=== PATIENT | female | born 1940 | race Caucasian/White ===

== ENCOUNTER 2018-06-08 10:08 | Emergency (ER) | payer OTHER ==
[~2018-06-08 10:08] MED LIST: ATEN25TA PO; BUPR150T8 PO; DICY10CA13 PO; ESCI10TA54 PO; FLUT16H NS; PANT40TA25 PO; PRAV10TA39 PO
[2018-06-08 10:40] LABS: BASOPHILS % (AUTO) 0.8 % (0.0-5.0); EOSINOPHILS % (AUTO) 2.8 % (0.0-8.0); HEMATOCRIT 39.3 % (36-48); LYMPHOCYTES % (AUTO) 23.2 % (21.0-51.0); MEAN CORPUSCULAR HEMOGLOBIN 31.2 pg (27.0-33.0); MEAN CORPUSCULAR HGB CONC 33.1 g/dL (32.0-36.0); MEAN CORPUSCULAR VOLUME 94.1 fL (79-99); MONOCYTES % (AUTO) 9.3 % (3.0-13.0); NEUTROPHILS % (AUTO) 63.9 % (40.0-77.0); NUCLEATED RED BLOOD CELLS 0.2 % (0.0-0.19); PLATELET COUNT (AUTO) 176 K/uL (130-400); RED BLOOD CELL COUNT(AUTO) 4.17 MIL/uL (4.00-5.50); RED CELL DISTRIBUTION WIDTH 14.8 % (11.0-15.5); WHITE BLOOD COUNT (AUTO) 5.4 K/uL (4.8-10.8)
[2018-06-08 11:03] LABS: CREATININE 0.9 mg/dL (0.5-1.5); POTASSIUM 4.2 mmol/L (3.5-5.1)
[2018-06-08 11:11] LABS: ALBUMIN 3.1 g/dL (3.5-5.0); BILIRUBIN,TOTAL 0.8 mg/dL (0.2-1.0); TOTAL PROTEIN, SERUM 7.1 g/dL (6.0-8.3)
== END 2018-06-08 13:23 | disposition home or self-care (01) ==
LOC: EDH 10:08
DX: S09.90XA Unspecified injury of head, initial encounter (principal); I10 Essential (primary) hypertension; E78.5 Hyperlipidemia, unspecified; E11.9 Type 2 diabetes mellitus without complications; K21.9 Gastro-esophageal reflux disease without esophagitis; I48.91 Unspecified atrial fibrillation; Z90.49 Acquired absence of other specified parts of digestive tract; Z90.710 Acquired absence of both cervix and uterus; Z98.890 Other specified postprocedural states; Z87.891 Personal history of nicotine dependence; Z88.2 Allergy status to sulfonamides; Z91.048 Other nonmedicinal substance allergy status; W01.198A Fall on same level from slipping, tripping and stumbling with subsequent striking against other object, initial encounter; Y93.89 Activity, other specified; Y92.89 Other specified places as the place of occurrence of the external cause; Y99.8 Other external cause status
CPT/HCPCS: 36415; 70450; 72125; 80053; 84484; 85025; 93005

== ENCOUNTER → 2018-09-16 | Outpatient (CLI) | payer OTHER | END | disposition home or self-care (01) | LOC: SHCH 13:31 | PROVIDERS: ATTEND Internal Medicine Cardiovascular Disease | DX: I65.23 Occlusion and stenosis of bilateral carotid arteries (principal); I51.7 Cardiomegaly | CPT/HCPCS: 93306; 93880 ==

== ENCOUNTER 2018-10-10 06:15 | Emergency (ER) | payer OTHER ==
[2018-10-10 06:55] LABS: BASOPHILS % (AUTO) 1.3 % (0.0-5.0); EOSINOPHILS % (AUTO) 2.2 % (0.0-8.0); LYMPHOCYTES % (AUTO) 22.1 % (21.0-51.0); MEAN CORPUSCULAR HEMOGLOBIN 31.4 pg (27.0-33.0); MEAN CORPUSCULAR HGB CONC 33.4 g/dL (32.0-36.0); MONOCYTES % (AUTO) 8.6 % (3.0-13.0); NEUTROPHILS % (AUTO) 65.8 % (40.0-77.0); PLATELET COUNT (AUTO) 203 K/uL (130-400); RED BLOOD CELL COUNT(AUTO) 4.36 MIL/uL (4.00-5.50); RED CELL DISTRIBUTION WIDTH 15.2 % (11.0-15.5); WHITE BLOOD COUNT (AUTO) 9.6 K/uL (4.8-10.8)
[2018-10-10 07:04] LABS: CREATININE 0.8 mg/dL (0.5-1.5); POTASSIUM 3.5 mmol/L (3.5-5.1)
[2018-10-10 07:06] LABS: PARTIAL THROMBOPLASTIN TIME 26.9 SEC (26.3-35.5); PROTHROMBIN TIME 10.5 SEC (9.6-11.6)
[2018-10-10 07:10] LABS: ALBUMIN 3.2 g/dL (3.5-5.0); BILIRUBIN,TOTAL 1.2 mg/dL (0.2-1.0); TOTAL PROTEIN, SERUM 6.9 g/dL (6.0-8.3)
[2018-10-10] MEDS ORDERED: ACETAMINOPHEN 325 MG TAB ONE (08:21)
== END 2018-10-10 09:50 | disposition home or self-care (01) ==
LOC: EDH 06:15
DX: S20.212A Contusion of left front wall of thorax, initial encounter (principal); S20.211A Contusion of right front wall of thorax, initial encounter; E11.9 Type 2 diabetes mellitus without complications; F03.90 Unspecified dementia, unspecified severity, without behavioral disturbance, psychotic disturbance, mood disturbance, and anxiety; E78.5 Hyperlipidemia, unspecified; I10 Essential (primary) hypertension; K21.9 Gastro-esophageal reflux disease without esophagitis; I48.91 Unspecified atrial fibrillation; Z91.041 Radiographic dye allergy status; Z88.2 Allergy status to sulfonamides; Z90.49 Acquired absence of other specified parts of digestive tract; W18.39XA Other fall on same level, initial encounter; Y93.01 Activity, walking, marching and hiking; Y92.89 Other specified places as the place of occurrence of the external cause; Y99.8 Other external cause status
CPT/HCPCS: 36415; 71045; 71100; 71250; 80053; 82550; 84484; 85025; 85610; 85730; 93005

== ENCOUNTER 2019-06-02 13:16 | Emergency (ER) | payer OTHER ==
[2019-06-02] MEDS ORDERED: TETRACAINE HCL 0.5% 4 ML OPHTH SOLN ONE (14:05)
[2019-06-02] MEDS ORDERED: FLUORESCEIN SODIUM 1 STRIP STRIP ONE (14:05)
[2019-06-02] MEDS ORDERED: NA BORATE/BORIC AC/H2O/NACL 120 ML OPHTH IRRIG SOLN ONE (14:05)
== END 2019-06-02 15:08 | disposition home or self-care (01) ==
LOC: EDH 13:16
DX: H10.45 Other chronic allergic conjunctivitis (principal); I10 Essential (primary) hypertension; R78.5 Finding of other psychotropic drug in blood; K21.9 Gastro-esophageal reflux disease without esophagitis; E11.9 Type 2 diabetes mellitus without complications; I48.91 Unspecified atrial fibrillation; Z91.041 Radiographic dye allergy status; Z88.2 Allergy status to sulfonamides; Z91.048 Other nonmedicinal substance allergy status; Z87.891 Personal history of nicotine dependence

== ENCOUNTER 2022-01-25 16:28 | Emergency (ER) | payer OTHER ==
[~2022-01-25] VITALS: Ht 160 cm; Wt 58.1 kg
[~2022-01-25 16:28] MED LIST changes: +AEC81 PO; +ALEN70TA80 PO; -ATEN25TA PO; +BUPR-72 PO; -BUPR150T8 PO; +ESCI-8 PO; -ESCI10TA54 PO; -FLUT16H NS; +LEVO750T68 PO; +NYST15CR40 TP; +OLOP2.5D16 OP; +OMEG-148 PO; -PANT40TA25 PO; +PANT40TA54 PO; +PROP10DR2 OP; +TRAZ-185 PO
[2022-01-25 16:30] VITALS: BP 113/49
== END 2022-01-25 18:09 | disposition home or self-care (01) ==
LOC: EDH 16:28
DX: M79.622 Pain in left upper arm (principal); Z88.2 Allergy status to sulfonamides; Z88.5 Allergy status to narcotic agent; Z88.8 Allergy status to other drugs, medicaments and biological substances; Z90.49 Acquired absence of other specified parts of digestive tract; Z79.82 Long term (current) use of aspirin; Z79.899 Other long term (current) drug therapy; Z86.73 Personal history of transient ischemic attack (TIA), and cerebral infarction without residual deficits
CPT/HCPCS: 73060; 93005

== ENCOUNTER 2022-04-01 15:18 | Emergency (ER) | payer OTHER ==
[~2022-04-01] VITALS: Ht 160 cm; Wt 63.5 kg
[2022-04-01 16:12] LABS: BASOPHILS % (AUTO) 0.6 % (0.0-5.0); EOSINOPHILS % (AUTO) 2.5 % (0.0-8.0); HEMATOCRIT 31.7 % (36-48); LYMPHOCYTES % (AUTO) 18.3 % (21.0-51.0); MEAN CORPUSCULAR HEMOGLOBIN 29.4 pg (27.0-33.0); MEAN CORPUSCULAR HGB CONC 33.4 g/dL (32.0-36.0); MEAN CORPUSCULAR VOLUME 87.8 fL (79-99); MONOCYTES % (AUTO) 9.3 % (3.0-13.0); NEUTROPHILS % (AUTO) 68.7 % (40.0-77.0); PLATELET COUNT (AUTO) 209 K/uL (130-400); RED BLOOD CELL COUNT(AUTO) 3.61 MIL/uL (4.00-5.50); RED CELL DISTRIBUTION WIDTH 15.9 % (11.0-15.5); WHITE BLOOD COUNT (AUTO) 6.3 K/uL (4.8-10.8)
[2022-04-01 16:20] LABS: CREATININE 0.9 mg/dL (0.5-1.5); INR 1.1 (0.85-1.15); POTASSIUM 3.3 mmol/L (3.5-5.1); PROTHROMBIN TIME 11.9 SEC (9.6-11.6)
[2022-04-01 16:22] LABS: PARTIAL THROMBOPLASTIN TIME 27.4 SEC (26.3-35.5)
[2022-04-01 16:25] LABS: TOTAL PROTEIN, SERUM 6.6 g/dL (6.0-8.3)
[2022-04-01] MEDS ORDERED: ACETAMINOPHEN 325 MG TAB PO ONE (18:30)
[2022-04-01] MEDS ORDERED: POTASSIUM BICARB/CIT AC 25 MEQ TABLET.EFF ONE (18:45)
[2022-04-01 18:50] LABS: APPEARANCE,URINE TURBID (CLEAR); BILIRUBIN,URINE NEGATIVE (NEGATIVE); COLOR,URINE YELLOW (YELLOW); GLUCOSE, URINE (UA) NEGATIVE (NEGATIVE); KETONES,URINE 5 mg/dL (NEGATIVE); LEUKOCYTE ESTERASE ,URINE 75 Leu/uL (NEGATIVE); NITRATE,URINE NEGATIVE (NEGATIVE); OCCULT BLOOD,URINE NEGATIVE (NEGATIVE); PH,URINE 7.5 (5.0-8.0); PROTEIN,URINE 10 mg/dL (NEGATIVE); UROBILINOGEN,URINE 6 mg/dL (0.2-1.0)
[2022-04-01] MEDS ORDERED: KCL 20 MEQ ERTAB PO ONE ×2 (18:50→19:00)
[2022-04-01 19:01] LABS: BACTERIA,URINE MOD /HPF (None Seen); MUCUS,URINE RARE LPF (None Seen)
[2022-04-01] MEDS ORDERED: MACR100 PO (19:41)
[2022-04-01] MEDS ORDERED: CEFTRIAXONE 1G VIAL IVP ONE (20:00)
[2022-04-01 20:23] VITALS: BP 108/54
== END 2022-04-01 20:38 | disposition home or self-care (01) ==
LOC: EDH 15:18
DX: S92.212A Displaced fracture of cuboid bone of left foot, initial encounter for closed fracture (principal); N39.0 Urinary tract infection, site not specified; E87.6 Hypokalemia; E11.9 Type 2 diabetes mellitus without complications; E78.00 Pure hypercholesterolemia, unspecified; I10 Essential (primary) hypertension; Z88.2 Allergy status to sulfonamides; Z88.5 Allergy status to narcotic agent; Z88.8 Allergy status to other drugs, medicaments and biological substances; Z79.82 Long term (current) use of aspirin; W18.39XA Other fall on same level, initial encounter; Y93.89 Activity, other specified; Y92.89 Other specified places as the place of occurrence of the external cause; Y99.8 Other external cause status
CPT/HCPCS: 99285; 96374; 29515; 73700; 82550; 80053; 85025; 85610; 85730; 87077; 87088; 87186; 81001; 36415; 73630; J0696

== ENCOUNTER 2022-06-13 22:11 | Inpatient (IN) | payer OTHER ==
[~2022-06-13] VITALS: Ht 160 cm; Wt 68.0 kg
[~2022-06-13 22:11] MED LIST changes: +MACR100 PO
[2022-06-13] MEDS ORDERED: LACTATED RINGERS 1000ML 1,000 ML IV ONE (23:00)
[2022-06-13] MEDS ORDERED: ACETAMINOPHEN 650 MG SUPPOSITORY RC ONE (23:34)
[2022-06-13 23:46] LABS: BASOPHILS % (AUTO) 0.5 % (0.0-5.0); EOSINOPHILS % (AUTO) 1.8 % (0.0-8.0); LYMPHOCYTES % (AUTO) 23.8 % (21.0-51.0); MEAN CORPUSCULAR HEMOGLOBIN 30.2 pg (27.0-33.0); MEAN CORPUSCULAR HGB CONC 33.5 g/dL (32.0-36.0); MEAN CORPUSCULAR VOLUME 90.2 fL (79-99); MONOCYTES % (AUTO) 11.6 % (3.0-13.0); PLATELET COUNT (AUTO) 184 K/uL (130-400); RED BLOOD CELL COUNT(AUTO) 3.77 MIL/uL (4.00-5.50); RED CELL DISTRIBUTION WIDTH 14.4 % (11.0-15.5); WHITE BLOOD COUNT (AUTO) 6.1 K/uL (4.8-10.8)
[2022-06-13 23:54] LABS: BILIRUBIN,URINE NEGATIVE (NEGATIVE); COLOR,URINE YELLOW (YELLOW); GLUCOSE, URINE (UA) NEGATIVE (NEGATIVE); KETONES,URINE NEGATIVE (NEGATIVE); LEUKOCYTE ESTERASE ,URINE NEGATIVE Leu/uL (NEGATIVE); NITRATE,URINE NEGATIVE (NEGATIVE); OCCULT BLOOD,URINE NEGATIVE (NEGATIVE); PH,URINE 6.5 (5.0-8.0); PROTEIN,URINE NEGATIVE (NEGATIVE)
[2022-06-13 23:57] LABS: APPEARANCE,URINE CLOUDY (CLEAR)
[2022-06-13 23:59] LABS: MUCUS,URINE RARE LPF (None Seen); RBC,URINE 26-50 /HPF (0-1)
[2022-06-14 00:03] LABS: CREATININE 0.9 mg/dL (0.5-1.5); TOTAL PROTEIN, SERUM 6.8 g/dL (6.0-8.3)
[2022-06-14 00:21] LABS: POTASSIUM 2.8 mmol/L (3.5-5.1)
[2022-06-14] MEDS ORDERED: AZITHROMYCIN 500MG+NS 250ML IVPB SCH (01:30)
[2022-06-14] MEDS ORDERED: 0.9%NACL 1000ML 1,000 ML IV SCH (01:30)
[2022-06-14] MEDS ORDERED: CEFTRIAXONE 1G VIAL IVP ONE (01:30)
[2022-06-14] MEDS ORDERED: POTASSIUM CHLORIDE 10% ELIXIR 20 MEQ/15 ML UDCUP PO ONE (01:30)
[2022-06-14] MEDS ORDERED: POTASSIUM CHLORIDE 10MEQ/100ML 100 ML IV ONE ×2 (02:35→05:11)
[2022-06-14] MEDS ORDERED: ALBUTEROL 0.083% 2.5 MG/3 ML INH IH PRN (03:00)
[2022-06-14] MEDS ORDERED: LACTULOSE 20 GM/30 ML UDCUP PO PRN (03:00)
[2022-06-14] MEDS ORDERED: ONDANSETRON 4MG INJ IVP PRN (03:00)
[2022-06-14] MEDS ORDERED: ACETAMINOPHEN 325 MG TAB PO PRN (03:00)
[2022-06-14] MEDS ORDERED: IPRATROPIUM 0.5 MG/2.5 ML INH IH PRN (03:00)
[2022-06-14] MEDS ORDERED: HYDRALAZINE 20MG/ML VIAL IV PRN (03:00)
[2022-06-14] MEDS ORDERED: LORAZEPAM 2 MG/ML 1 ML VIAL ONE (03:05)
[2022-06-14] MEDS ORDERED: LORAZEPAM 2 MG/ML 1 ML VIAL IVP PRN (03:30)
[2022-06-14] MEDS ORDERED: LORAZEPAM 2 MG/ML 1 ML VIAL IVP ONE (03:30)
[2022-06-14] MEDS ORDERED: GUAIFENESIN-DM 200/20 MG 10 ML PO PRN (04:00)
[2022-06-14] MEDS ORDERED: NS-20 MEQ KCL 1000ML 1,000 ML IV SCH (04:00)
[2022-06-14] MEDS ORDERED: BENZONATATE 100 MG CAPSULE PO PRN (04:00)
[2022-06-14 06:59] LABS: % IRON SATURATION 12.3 % (22-44)
[2022-06-14] MEDS ORDERED: ZOSYN 3.375GM +NS 50ML IV SCH (08:00)
[2022-06-14 08:40] VITALS: BP 126/66
[2022-06-14] MEDS ORDERED: PANTOPRAZOLE 40 MG/VIAL IVP SCH (09:00)
[2022-06-14] MEDS: DOCUSATE SODIUM 100 MG CAP PO SCH ×2 (10:12→21:00)
[2022-06-14] MEDS: ENOXAPARIN SODIUM 30 MG/0.3 ML SQ SCH (10:13)
[2022-06-14 11:15] VITALS: BP 134/75
[2022-06-14] MEDS: IPRATROPIUM 0.5 MG/2.5 ML INH IH SCH ×3 (11:31→23:20)
[2022-06-14] MEDS: ALBUTEROL 0.083% 2.5 MG/3 ML INH IH SCH ×3 (11:31→23:20)
[2022-06-14] MEDS: ZOSYN 3.375GM +NS 50ML IV SCH ×2 (12:14→22:00)
[2022-06-14 15:38] VITALS: BP 129/69
[2022-06-14 20:00] VITALS: BP 119/59
[2022-06-14] MEDS ORDERED: D5 NS WITH 20 mEq KCl 1000ML IV SCH (22:30)
[2022-06-14] MEDS ORDERED: POTASSIUM CHLORIDE 20MEQ/100ML 100 ML IV ONE (22:56)
[2022-06-14] MEDS ORDERED: DEXTROSE 5 % AND 0.9 % NACL 1,000 ML IV ONE (22:56)
[2022-06-15] VITALS: BP 130/63
[2022-06-15] MEDS ORDERED: PROPYLENE GLYCOL OP PRN
[2022-06-15] MEDS ORDERED: NYSTATIN-TRIAMCINOLONE CREAM 15 GM TP PRN
[2022-06-15] MEDS ORDERED: DICYCLOMINE HCL 20 MG TAB PO PRN
[2022-06-15] MEDS ORDERED: CEFTRIAXONE 2GM VIAL IVP SCH
[2022-06-15] MEDS ORDERED: PEG OP PRN
[2022-06-15] MEDS: AZITHROMYCIN 500MG+NS 250ML IVPB SCH (03:49)
[2022-06-15 04:00] VITALS: BP 130/76
[2022-06-15 04:21] LABS: BASOPHILS % (AUTO) 0.5 % (0.0-5.0); EOSINOPHILS % (AUTO) 3.1 % (0.0-8.0); HEMATOCRIT 28.2 % (36-48); LYMPHOCYTES % (AUTO) 26.8 % (21.0-51.0); MONOCYTES % (AUTO) 10.9 % (3.0-13.0); NEUTROPHILS % (AUTO) 58.5 % (40.0-77.0); PLATELET COUNT (AUTO) 132 K/uL (130-400); RED CELL DISTRIBUTION WIDTH 14.3 % (11.0-15.5); WHITE BLOOD COUNT (AUTO) 4.2 K/uL (4.8-10.8)
[2022-06-15 04:33] LABS: CREATININE 0.8 mg/dL (0.5-1.5); MAGNESIUM 1.8 mg/dL (1.80-2.40); PHOSPHORUS 2.4 mg/dL (2.5-4.9); POTASSIUM 3.1 mmol/L (3.5-5.1)
[2022-06-15] MEDS: ZOSYN 3.375GM +NS 50ML IV SCH ×3 (05:41→21:04)
[2022-06-15] MEDS: IPRATROPIUM 0.5 MG/2.5 ML INH IH SCH ×3 (06:48→18:26)
[2022-06-15] MEDS: ALBUTEROL 0.083% 2.5 MG/3 ML INH IH SCH ×3 (06:48→18:26)
[2022-06-15 08:00] VITALS: BP 105/49
[2022-06-15] MEDS: OLOPATADINE HCL OP SCH (08:08)
[2022-06-15] MEDS: PANTOPRAZOLE 40 MG TAB DR PO SCH (08:09)
[2022-06-15] MEDS: BUPROPION HCL 150 MG TABLET.SA PO SCH ×2 (08:09→21:00)
[2022-06-15] MEDS: ASPIRIN 81 MG EC TAB PO SCH (08:09)
[2022-06-15] MEDS: DOCUSATE SODIUM 100 MG CAP PO SCH ×2 (08:09→20:17)
[2022-06-15] MEDS: CITALOPRAM 20 MG TABLET PO SCH (08:09)
[2022-06-15] MEDS: FISH OIL 1000 MG/CAP PO SCH (08:10)
[2022-06-15] MEDS: ENOXAPARIN SODIUM 30 MG/0.3 ML SQ SCH (08:10)
[2022-06-15] MEDS ORDERED: LIDOCAINE HCL-MPF 1% 2ML VIAL IV PRN ×2 (11:00)
[2022-06-15] MEDS ORDERED: POTASSIUM CHLORIDE 20MEQ/100ML 100 ML IV PRN ×2 (11:00)
[2022-06-15 12:00] VITALS: BP 115/66
[2022-06-15] MEDS: KCL 20 MEQ ERTAB PO PRN ×2 (15:18→18:09)
[2022-06-15 16:00] VITALS: BP 123/59
[2022-06-15] MEDS ORDERED: HALOPERIDOL INJ 5 MG/ML VIAL IM PRN (16:30)
[2022-06-15 19:43] VITALS: BP 139/59
[2022-06-15] MEDS: SIMVASTATIN 10 MG TABLET PO SCH ×2 (21:00→21:04)
[2022-06-15] MEDS: TRAZODONE HCL 50 MG TAB PO SCH ×2 (21:00→21:04)
[2022-06-15] MEDS: POTASSIUM CHLORIDE 10% ELIXIR 20 MEQ/15 ML UDCUP PO PRN (21:04)
[2022-06-16] VITALS (8 sets, daily range): BP systolic 121–136; BP diastolic 63–70
[2022-06-16] MEDS: AZITHROMYCIN 500MG+NS 250ML IVPB SCH (00:06)
[2022-06-16] MEDS: ZOSYN 3.375GM +NS 50ML IV SCH ×3 (05:01→20:51)
[2022-06-16 05:33] LABS: BASOPHILS % (AUTO) 0.7 % (0.0-5.0); EOSINOPHILS % (AUTO) 6.4 % (0.0-8.0); LYMPHOCYTES % (AUTO) 27.6 % (21.0-51.0); MEAN CORPUSCULAR HEMOGLOBIN 30.5 pg (27.0-33.0); MEAN CORPUSCULAR HGB CONC 32.6 g/dL (32.0-36.0); MEAN CORPUSCULAR VOLUME 93.7 fL (79-99); MONOCYTES % (AUTO) 10.1 % (3.0-13.0); NEUTROPHILS % (AUTO) 54.8 % (40.0-77.0); PLATELET COUNT (AUTO) 131 K/uL (130-400); RED BLOOD CELL COUNT(AUTO) 3.31 MIL/uL (4.00-5.50); RED CELL DISTRIBUTION WIDTH 14.3 % (11.0-15.5); WHITE BLOOD COUNT (AUTO) 4.6 K/uL (4.8-10.8)
[2022-06-16 05:42] LABS: CREATININE 0.7 mg/dL (0.5-1.5); MAGNESIUM 1.8 mg/dL (1.80-2.40); POTASSIUM 3.4 mmol/L (3.5-5.1)
[2022-06-16] MEDS: MAGNESIUM 2GM PREMIX 50ML 50 ML IV PRN (05:50)
[2022-06-16] MEDS: POTASSIUM CHLORIDE 10% ELIXIR 20 MEQ/15 ML UDCUP PO PRN (05:51)
[2022-06-16] MEDS: ALBUTEROL 0.083% 2.5 MG/3 ML INH IH SCH ×4 (06:25→23:13)
[2022-06-16] MEDS: IPRATROPIUM 0.5 MG/2.5 ML INH IH SCH ×4 (06:25→23:13)
[2022-06-16] MEDS: OLOPATADINE HCL OP SCH (09:00)
[2022-06-16] MEDS: BUPROPION HCL 150 MG TABLET.SA PO SCH ×2 (09:33→20:51)
[2022-06-16] MEDS: CITALOPRAM 20 MG TABLET PO SCH (09:33)
[2022-06-16] MEDS: DOCUSATE SODIUM 100 MG CAP PO SCH ×2 (09:33→20:51)
[2022-06-16] MEDS: PANTOPRAZOLE 40 MG TAB DR PO SCH (09:33)
[2022-06-16] MEDS: ASPIRIN 81 MG EC TAB PO SCH (09:33)
[2022-06-16] MEDS: FISH OIL 1000 MG/CAP PO SCH (09:33)
[2022-06-16] MEDS: ENOXAPARIN SODIUM 30 MG/0.3 ML SQ SCH (09:34)
[2022-06-16] MEDS: SIMVASTATIN 10 MG TABLET PO SCH (20:51)
[2022-06-16] MEDS: TRAZODONE HCL 50 MG TAB PO SCH (20:51)
[2022-06-17] MEDS: AZITHROMYCIN 500MG+NS 250ML IVPB SCH (00:37)
[2022-06-17 04:10] VITALS: BP 102/55
[2022-06-17 04:32] LABS: BASOPHILS % (AUTO) 0.4 % (0.0-5.0); EOSINOPHILS % (AUTO) 7.2 % (0.0-8.0); HEMATOCRIT 28.8 % (36-48); LYMPHOCYTES % (AUTO) 33.4 % (21.0-51.0); MEAN CORPUSCULAR HGB CONC 33.3 g/dL (32.0-36.0); MONOCYTES % (AUTO) 10.1 % (3.0-13.0); NEUTROPHILS % (AUTO) 48.5 % (40.0-77.0); PLATELET COUNT (AUTO) 143 K/uL (130-400); RED CELL DISTRIBUTION WIDTH 14.2 % (11.0-15.5); WHITE BLOOD COUNT (AUTO) 4.5 K/uL (4.8-10.8)
[2022-06-17 04:43] LABS: ALBUMIN 2.4 g/dL (3.5-5.0); CREATININE 0.8 mg/dL (0.5-1.5); MAGNESIUM 1.8 mg/dL (1.80-2.40); PHOSPHORUS 2.9 mg/dL (2.5-4.9); POTASSIUM 3.1 mmol/L (3.5-5.1); TOTAL PROTEIN, SERUM 5.7 g/dL (6.0-8.3)
[2022-06-17] MEDS: ZOSYN 3.375GM +NS 50ML IV SCH ×3 (05:18→21:12)
[2022-06-17] MEDS: POTASSIUM CHLORIDE 10% ELIXIR 20 MEQ/15 ML UDCUP PO PRN ×3 (05:19→21:13)
[2022-06-17] MEDS: MAGNESIUM 2GM PREMIX 50ML 50 ML IV PRN (05:19)
[2022-06-17] MEDS: ALBUTEROL 0.083% 2.5 MG/3 ML INH IH SCH ×4 (06:26→23:10)
[2022-06-17] MEDS: IPRATROPIUM 0.5 MG/2.5 ML INH IH SCH ×4 (06:26→23:10)
[2022-06-17 08:43] VITALS: BP 109/65
[2022-06-17] MEDS: OLOPATADINE HCL OP SCH (09:00)
[2022-06-17] MEDS: ASPIRIN 81 MG EC TAB PO SCH (09:37)
[2022-06-17] MEDS: BUPROPION HCL 150 MG TABLET.SA PO SCH ×2 (09:37→21:13)
[2022-06-17] MEDS: PANTOPRAZOLE 40 MG TAB DR PO SCH (09:37)
[2022-06-17] MEDS: CITALOPRAM 20 MG TABLET PO SCH (09:37)
[2022-06-17] MEDS: DOCUSATE SODIUM 100 MG CAP PO SCH ×2 (09:37→21:12)
[2022-06-17] MEDS: FISH OIL 1000 MG/CAP PO SCH (09:37)
[2022-06-17] MEDS: ENOXAPARIN SODIUM 30 MG/0.3 ML SQ SCH (09:38)
[2022-06-17] MEDS ORDERED: RISPERIDONE 1 MG TABLET PO SCH ×2 (13:30→21:00)
[2022-06-17 16:45] VITALS: BP 139/68
[2022-06-17 20:00] VITALS: BP 125/72
[2022-06-17] MEDS: TRAZODONE HCL 50 MG TAB PO SCH (21:12)
[2022-06-17] MEDS: SIMVASTATIN 10 MG TABLET PO SCH (21:13)
[2022-06-18] MEDS: AZITHROMYCIN 500MG+NS 250ML IVPB SCH ×2 (00:19→23:47)
[2022-06-18 05:01] LABS: BASOPHILS % (AUTO) 0.6 % (0.0-5.0); EOSINOPHILS % (AUTO) 6.7 % (0.0-8.0); HEMATOCRIT 28.1 % (36-48); LYMPHOCYTES % (AUTO) 24.4 % (21.0-51.0); MEAN CORPUSCULAR HEMOGLOBIN 30.5 pg (27.0-33.0); MEAN CORPUSCULAR HGB CONC 32.7 g/dL (32.0-36.0); MONOCYTES % (AUTO) 9.8 % (3.0-13.0); NEUTROPHILS % (AUTO) 57.9 % (40.0-77.0); PLATELET COUNT (AUTO) 120 K/uL (130-400); RED BLOOD CELL COUNT(AUTO) 3.02 MIL/uL (4.00-5.50); RED CELL DISTRIBUTION WIDTH 14.7 % (11.0-15.5); WHITE BLOOD COUNT (AUTO) 3.6 K/uL (4.8-10.8)
[2022-06-18 05:08] LABS: CREATININE 0.7 mg/dL (0.5-1.5); MAGNESIUM 1.8 mg/dL (1.80-2.40); POTASSIUM 3.7 mmol/L (3.5-5.1)
[2022-06-18] MEDS: ZOSYN 3.375GM +NS 50ML IV SCH ×3 (05:08→20:49)
[2022-06-18] MEDS: MAGNESIUM 2GM PREMIX 50ML 50 ML IV PRN (06:02)
[2022-06-18] MEDS: POTASSIUM CHLORIDE 10% ELIXIR 20 MEQ/15 ML UDCUP PO PRN (06:03)
[2022-06-18] MEDS: IPRATROPIUM 0.5 MG/2.5 ML INH IH SCH ×4 (06:05→23:39)
[2022-06-18] MEDS: ALBUTEROL 0.083% 2.5 MG/3 ML INH IH SCH ×4 (06:05→23:39)
[2022-06-18 07:00] VITALS: BP 101/62
[2022-06-18] MEDS: BUPROPION HCL 150 MG TABLET.SA PO SCH ×2 (08:39→20:49)
[2022-06-18] MEDS: FISH OIL 1000 MG/CAP PO SCH (08:39)
[2022-06-18] MEDS: CITALOPRAM 20 MG TABLET PO SCH (08:39)
[2022-06-18] MEDS: DOCUSATE SODIUM 100 MG CAP PO SCH ×2 (08:39→20:49)
[2022-06-18] MEDS: ASPIRIN 81 MG EC TAB PO SCH (08:39)
[2022-06-18] MEDS: PANTOPRAZOLE 40 MG TAB DR PO SCH (08:39)
[2022-06-18] MEDS: OLOPATADINE HCL OP SCH (08:40)
[2022-06-18] MEDS: ENOXAPARIN SODIUM 30 MG/0.3 ML SQ SCH (08:40)
[2022-06-18 11:10] VITALS: BP 107/56
[2022-06-18 15:05] VITALS: BP 119/55
[2022-06-18] MEDS ORDERED: MEMANTINE HCL 5 MG TABLET PO SCH (16:30)
[2022-06-18] MEDS ORDERED: RISPERIDONE 1 MG TABLET PO SCH ×2 (16:30→21:00)
[2022-06-18 20:28] VITALS: BP 137/71
[2022-06-18] MEDS: TRAZODONE HCL 50 MG TAB PO SCH (20:49)
[2022-06-18] MEDS: SIMVASTATIN 10 MG TABLET PO SCH (20:52)
[2022-06-18] MEDS ORDERED: 0.9% NACL 250ML 250 ML ONE (23:44)
[2022-06-19 00:19] VITALS: BP 127/61
[2022-06-19 04:43] LABS: BASOPHILS % (AUTO) 0.5 % (0.0-5.0); CREATININE 0.8 mg/dL (0.5-1.5); EOSINOPHILS % (AUTO) 7.1 % (0.0-8.0); HEMATOCRIT 27.5 % (36-48); LYMPHOCYTES % (AUTO) 23.9 % (21.0-51.0); MAGNESIUM 1.7 mg/dL (1.80-2.40); MEAN CORPUSCULAR HEMOGLOBIN 30.6 pg (27.0-33.0); MEAN CORPUSCULAR HGB CONC 33.5 g/dL (32.0-36.0); MEAN CORPUSCULAR VOLUME 91.4 fL (79-99); MONOCYTES % (AUTO) 8.7 % (3.0-13.0); NEUTROPHILS % (AUTO) 59.5 % (40.0-77.0); PLATELET COUNT (AUTO) 129 K/uL (130-400); POTASSIUM 3.9 mmol/L (3.5-5.1); RED BLOOD CELL COUNT(AUTO) 3.01 MIL/uL (4.00-5.50); RED CELL DISTRIBUTION WIDTH 14.8 % (11.0-15.5); WHITE BLOOD COUNT (AUTO) 3.8 K/uL (4.8-10.8)
[2022-06-19 04:44] VITALS: BP 131/74
[2022-06-19] MEDS: ZOSYN 3.375GM +NS 50ML IV SCH (05:42)
[2022-06-19] MEDS: ALBUTEROL 0.083% 2.5 MG/3 ML INH IH SCH ×2 (07:24→11:05)
[2022-06-19] MEDS: IPRATROPIUM 0.5 MG/2.5 ML INH IH SCH ×2 (07:24→11:05)
[2022-06-19 07:53] VITALS: BP 123/69
[2022-06-19] MEDS: OLOPATADINE HCL OP SCH (08:45)
[2022-06-19] MEDS ORDERED: RISPERIDONE 1 MG TABLET PO SCH (09:00)
[2022-06-19] MEDS ORDERED: MEMANTINE HCL 5 MG TABLET PO SCH (09:00)
[2022-06-19] MEDS: CITALOPRAM 20 MG TABLET PO SCH (09:14)
[2022-06-19] MEDS: BUPROPION HCL 150 MG TABLET.SA PO SCH (09:14)
[2022-06-19] MEDS: ASPIRIN 81 MG EC TAB PO SCH (09:14)
[2022-06-19] MEDS: DOCUSATE SODIUM 100 MG CAP PO SCH (09:14)
[2022-06-19] MEDS: FISH OIL 1000 MG/CAP PO SCH (09:14)
[2022-06-19] MEDS: ENOXAPARIN SODIUM 30 MG/0.3 ML SQ SCH (09:15)
[2022-06-19] MEDS: PANTOPRAZOLE 40 MG TAB DR PO SCH (09:15)
[2022-06-19 10:46] VITALS: BP 118/61
[2022-06-19 15:37] VITALS: BP 111/58
== END 2022-06-19 18:16 | DRG 193 ==
LOC: EDH 22:11 → OBSVTOIN 06-14 02:41 → EDHIP 06-14 02:41 → 4AH 06-14 08:59
PROVIDERS: ADMIT Internal Medicine Critical Care Medicine; ATTEND Internal Medicine Critical Care Medicine
DX: J15.7 Pneumonia due to Mycoplasma pneumoniae (principal); E43 Unspecified severe protein-calorie malnutrition; G92.8 Other toxic encephalopathy; J96.01 Acute respiratory failure with hypoxia; Z20.822 Contact with and (suspected) exposure to COVID-19; G30.9 Alzheimer's disease, unspecified; E87.6 Hypokalemia; E86.0 Dehydration; R62.7 Adult failure to thrive; B96.0 Mycoplasma pneumoniae [M. pneumoniae] as the cause of diseases classified elsewhere; E11.9 Type 2 diabetes mellitus without complications; I95.9 Hypotension, unspecified; F32.A Depression, unspecified; F02.80 Dementia in other diseases classified elsewhere, unspecified severity, without behavioral disturbance, psychotic disturbance, mood disturbance, and anxiety; E78.00 Pure hypercholesterolemia, unspecified; I10 Essential (primary) hypertension; R13.10 Dysphagia, unspecified; R29.6 Repeated falls; Z86.73 Personal history of transient ischemic attack (TIA), and cerebral infarction without residual deficits; Z86.74 Personal history of sudden cardiac arrest; Z88.2 Allergy status to sulfonamides; Z88.8 Allergy status to other drugs, medicaments and biological substances; Z68.26 Body mass index [BMI] 26.0-26.9, adult
CPT/HCPCS: 36415; 70450; 71045; 80048; 80053; 81001; 82140; 82270; 82728; 82948; 83540; 83550; 83605; 83690; 83735; 84100; 84132; 84134; 84484; 85025; 86738; 86850; 86900; 86901; 87040; 87420; 87449; 87635; 87804; 92507; 92610; 94640; 94667; 94668; 96361; 96365; 97039; C9113; C9803; G0378; J0456; J0696; J1630; J1650; J2060; J2543; J3475; J3480; J7030; J7042; J7050